=== PATIENT | female | born 1980 | race Caucasian/White ===

== ENCOUNTER 2025-10-25 15:55 | Emergency (ER) | payer MEDICAID ==
[~2025-10-25] VITALS: Ht 147.3 cm; Wt 66.0 kg
[2025-10-25 16:17] VITALS: BP 135/95; TEMP 36.9; O2SAT 100
[2025-10-25 16:25] VITALS: PULSE 116; RESP 18; O2SAT 100
== END 2025-10-25 20:32 | disposition left against medical advice (07) ==
LOC: ER 15:55
DX: R07.89 Other chest pain (principal); F41.9 Anxiety disorder, unspecified; I10 Essential (primary) hypertension
CPT/HCPCS: 93005; 99281